=== PATIENT | male | born 1995 | race Caucasian/White ===

== ENCOUNTER → 2016-10-26 | Outpatient (CLI) | payer OTHER ==
[~2016-10-26] MED LIST: CNC/54 PO
--- NOTE | 2016-10-26 14:27 | DIAGNOSTIC IMAGING REPORT ---
CHEST 2 VIEWS ROUTINE CLINICAL HISTORY: R05 [id number] [id number] Fatigueh/o EIA, now with cough, wz COMPARISON STUDY: 05/06/2016 FINDINGS: The cardiac and mediastinal contours are normal. There is no evidence of focal pulmonary consolidation. There is no evidence of failure. No pleural effusions are visualized.[ IMPRESSION: No active disease in the chest. Electronically signed by: Javier Cohen M.D. 10/26/2016 2:26 PM Dictated Date/Time: 10/26/2016 2:26 PM
[2016-10-26 14:55] LABS: BASO % 0.1 %; BASO ABS # 0.01 K/uL (0-0.2); COMPLETE YES; EOS % 7.7 %; HEMATOCRIT 45.4 % (42-52); IG% 0.1 %; LYMPH ABS # 2.06 K/uL (1.2-3.4); MEAN CELL VOLUME 86.3 fL (80-100); MEAN CORPUSCULAR HEMOGLOBIN 29.1 pg (25-34); MEAN CORPUSCULAR HGB CONC 33.7 g/dl (32-36); MEAN PLATELET VOLUME 11.4 fL (7.4-10.4); MONO % 6.3 %; NEUT % 59.8 %; PLATELET COUNT 254 K/uL (130-400); RED BLOOD COUNT 5.26 M/uL (4.7-6.1); WHITE BLOOD COUNT 7.91 K/uL (4.8-10.8)
[2016-10-26 15:13] LABS: ALT/SGPT 22 U/L (12-78); BLOOD UREA NITROGEN 17 mg/dl (7-18); BUN/CREATININE RATIO 13.4 (10-20); CALCIUM 9.7 mg/dl (8.5-10.1); CARBON DIOXIDE 28 mmol/L (21-32); CHLORIDE 103 mmol/L (98-107); GLUCOSE 100 mg/dl (70-99); GLUCOSE,FASTING 100 mg/dl (70-99); POTASSIUM 4.3 mmol/L (3.5-5.1); SODIUM 140 mmol/L (136-145)
[2016-10-26 15:24] LABS: ALB/GLOB RATIO 1.2 (0.9-2); ALKALINE PHOSPHATASE 68 U/L (45-117); AST/SGOT 19 U/L (15-37); FERRITIN 46.8 ng/ml (8.0-388.0); THYROID STIMULATING HORMONE 0.637 uIu/ml (0.300-4.500)
[2016-10-26 15:35] LABS: CALCULATED INSULIN SENSITIVITY 0.312; INSULIN FASTING 15.9 mU/L (3-25)
[2016-10-26 16:37] LABS: LYME DISEASE AB IGG NEG (NEG); LYME DISEASE AB IGM NEG (NEG)
[2016-10-27 06:10] LABS: ESTIMATED AVERAGE GLUCOSE 100 mg/dl; HA1C FLAG Normal (Normal)
[2016-11-03 21:53] LABS: EBV EARLY ANTIGEN AB <9.00 U/ML
== END ==
LOC: C.RAD 13:38
PROVIDERS: ATTEND Lactation Consultant, Non-RN
DX: J45.909 Unspecified asthma, uncomplicated (principal); R53.83 Other fatigue

== ENCOUNTER 2016-12-29 07:57 | Observation (INO) | payer OTHER ==
[~2016-12-29] VITALS: Ht 175.3 cm; Wt 91.2 kg
[2016-12-29] MEDS ORDERED: SODIUM CHLORIDE 0.9% 1000ML 1,000 ML IV STA (08:18)
--- NOTE | 2016-12-29 08:52 | DIAGNOSTIC IMAGING REPORT ---
HEAD CT NONCONTRAST CT DOSE: 638.56 mGycm HISTORY: OVERDOSE TECHNIQUE: Multiaxial CT images of the head were performed without the use of intravenous contrast. Automated exposure control was utilized for this study. A dose lowering technique was utilized adhering to the principles of ALARA. Comparison: Head CT 06/13/2011. Findings: The paranasal sinuses and mastoid air cells are clear. The calvarium and skull base are intact. The ventricles and sulci are within normal limits. There is no mass, hematoma, midline shift, or acute infarct. Old nasal bone fractures. Impression: No acute intracranial abnormality. Electronically signed by: Jad Garza M.D. 12/29/2016 8:51 AM Dictated Date/Time: 12/29/2016 8:47 AM
[2016-12-29 08:55] LABS: COMPLETE YES; EOS % 0.8 %; HEMATOCRIT 42.5 % (42-52); IG% 0.3 %; LYMPH % 10.6 %; LYMPH ABS # 1.15 K/uL (1.2-3.4); MEAN CELL VOLUME 85.9 fL (80-100); MEAN CORPUSCULAR HEMOGLOBIN 29.5 pg (25-34); MEAN CORPUSCULAR HGB CONC 34.4 g/dl (32-36); MEAN PLATELET VOLUME 11.1 fL (7.4-10.4); MONO % 6.8 %; NEUT % 81.5 %; PLATELET COUNT 256 K/uL (130-400); RED BLOOD COUNT 4.95 M/uL (4.7-6.1)
--- NOTE | 2016-12-29 08:57 | DIAGNOSTIC IMAGING REPORT ---
CHEST ONE VIEW PORTABLE CLINICAL HISTORY: Overdose COMPARISON STUDY: 10/26/2016 FINDINGS: The heart is borderline enlarged. There is a minimal right apical airspace opacity versus summation with the right first rib. The lungs are otherwise clear. There are no pleural effusions.[ IMPRESSION: Minimal right apical airspace opacity versus right first rib summation. The lungs are otherwise clear. Electronically signed by: Javier Cohen M.D. 12/29/2016 8:55 AM Dictated Date/Time: 12/29/2016 8:54 AM
[2016-12-29 09:13] LABS: URINE APPEARANCE CLEAR (CLEAR); URINE BILIRUBIN NEG (NEG); URINE COLOR YELLOW; URINE NITRITE NEG (NEG); URINE PH 5.5 (4.5-7.5); URINE SPECIFIC GRAVITY 1.031 (1.000-1.030); UROBILINOGEN NEG (NEG)
[2016-12-29 09:16] LABS: MANUAL MICROSCOPIC REQUIRED? NO; REVIEW REQ? NO
[2016-12-29 09:22] LABS: CREATININE 1.5 mg/dl (0.60-1.40)
[2016-12-29 09:23] LABS: BUN/CREATININE RATIO 15.3 (10-20); CALCIUM 9.4 mg/dl (8.5-10.1)
[2016-12-29 09:24] LABS: ACETAMINOPHEN < 2 ug/ml (10-30)
[2016-12-29] MEDS ORDERED: CNC/54 PO (09:27)
[2016-12-29 11:22] LABS: BENZODIAZEPINE, URINE NEG (NEG); COCAINE,URINE NEG (NEG); PHENCYCLIDINE, URINE NEG (NEG)
--- NOTE | 2016-12-29 11:29 | Medical Student: [facility] ---
Med Student History & Physical Date & Time of Service: Dec 29, 2016 at 11:26 Chief Complaint: Overdose Primary Care Physician: No Doctor, Assigned History of Present Illness Source: patient, family (father at bedside) Jake Mansfield is a 21 yo male, with prior Percocet/alcohol overdose in September 2015 , presented via EMS to the ED complaining of accidental Percocet overdose this morning. Patient's father states he found Jake in his room, purple, and unresponsive; father then called EMS, who gave Narcan in field. Patient responded to Narcan and was transported to the ED. Patient states he thinks he took 100mg of Percocet by nose "accidentally" this morning, noting occasionally taking 50-100mg of Percocet recreationally, with most recent ingestion 1.5- 2monhs prior. Jake states history of similar situation in September 2015, after receiving Percocet for a nose surgery. He notes his mother was in charge of his medication regime, but by the end of his treatment, he took the rest of the pills with alcohol, leading to an overdose. Patient reports taking Concerta 54 for ADHD (diagnosed at 10 yo), but usually does not take it during the summer; patient denies taking Concerta for last 2 weeks. Patient notes he takes ibuprofen for pain as needed about 3x a week, reporting possibly taking "4 tablets" of unknown concentration earlier last evening. Patient reports about 1.5 months ago, he was prescribed vitamin D for decreased energy level, with significant improvement in energy. Patient denies taking any other prescribed, OTC, or otherwise medications including other recreational drugs, Tylenol, or aspirin. Patient denies feeling down or depressed, suicidal or homicidal ideation, feelings of guilt, racing thoughts, feeling anxious, changes in appetite, or concentration changes. Patient notes a dry cough on ROS for the last couple of days, but does not seem bothered by it. Patient reports fatigue but denies any other associated symptoms. 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), student Allergies Coded Allergies: No Known Allergies (Unverified , 05/05/16) Medications Methylphenidate Hcl (Concerta), 54 MG PO DAILY Review of Systems Constitutional: + fatigue, No fever, No chills, No sweats, No weight loss, No weakness Eyes: No worsening of vision, No eye pain, No redness, No diplopia ENT: No hearing loss, No nasal symptoms, No sore throat, No trouble swallowing Respiratory: + cough (for 3 days), No sputum, No shortness of breath Cardiovascular: No chest pain, No orthopnea, No edema, No palpitations Abdomen: No pain, No nausea, No vomiting, No diarrhea, No constipation Musculoskeletal: No joint pain, No muscle pain, No calf pain Genitourinary - Male: No hematuria, No dysuria, No urinary frequency Neurologic: No weakness, No numbness/tingling Psychiatric: + substance abuse, No depression symptoms, No anxiety Endocrine: + fatigue Hematologic / Lymphatic: No abnormal bleeding/bruising, No swollen lymph nodes , No night sweats Integumentary: No rash, No itch Physical Exam Vital Signs (24 Hours) Date Time Temp Pulse Resp B/P (MAP) Pulse Ox O2 Delivery O2 Flow Rate FiO2 12/29/16 10:07 79 13 138/71 95 12/29/16 10:02 77 13 94 12/29/16 09:57 78 10 95 12/29/16 09:52 86 7 93 12/29/16 09:47 90 10 94 12/29/16 09:42 93 14 95 12/29/16 09:37 93 6 94 12/29/16 09:32 98 17 94 12/29/16 09:27 92 9 94 12/29/16 09:22 91 19 96 12/29/16 09:17 90 15 96 12/29/16 09:12 98 11 96 12/29/16 09:07 92 18 97 12/29/16 09:02 96 13 96 12/29/16 08:57 87 3 96 12/29/16 08:52 95 15 97 12/29/16 08:51 148/94 12/29/16 08:37 101 15 97 12/29/16 08:32 95 13 97 12/29/16 08:29 98 Room Air 12/29/16 08:27 103 14 98 12/29/16 08:22 101 24 97 12/29/16 08:17 105 16 132/89 97 12/29/16 08:12 98 21 96 12/29/16 08:07 101 9 97 12/29/16 08:05 96 12/29/16 08:00 37.3 99 20 135/93 97 Room Air 12/29/16 08:00 135/93 General Appearance: WD/WN, no apparent distress, + pertinent finding (fatigue, eyes closed during most of interview/exam) Head: normocephalic, atraumatic Eyes: normal inspection, PERRL, EOMI, sclerae normal ENT: normal ENT inspection, hearing grossly normal, pharynx normal Neck: supple, no adenopathy Respiratory/Chest: chest non-tender, lungs clear, normal breath sounds, no respiratory distress, no accessory muscle use Cardiovascular: regular rate, rhythm, no edema, no murmur, normal peripheral pulses Abdomen/GI: normal bowel sounds, non tender, soft, no organomegaly Back: normal inspection, normal range of motion Extremities/Musculoskelatal: normal inspection, no calf tenderness, no pedal edema, normal range of motion, non-tender Neurologic/Psych: lot attendant II-XII nml as tested, no motor/sensory deficits, alert, normal mood/affect, oriented x 3 Skin: normal color, warm/dry, + rash (dermititis rash on left loja) Lymphatic: no adenopathy Diagnostics Laboratory Results Results Past 24 Hours Test 12/29/16 08:26 12/29/16 08:28 12/29/16 08:55 Range/Units Bedside Glucose 159 70-99 mg/dl White Blood Count 10.80 4.8-10.8 K/uL Red Blood Count 4.95 4.7-6.1 M/uL Hemoglobin 14.6 14.0-18.0 g/dL Hematocrit 42.5 42-52 % Mean Corpuscular Volume 85.9 80-100 fL Mean Corpuscular Hemoglobin 29.5 25-34 pg Mean Corpuscular Hemoglobin Concent 34.4 32-36 g/dl Platelet Count 256 130-400 K/uL Mean Platelet Volume 11.1 7.4-10.4 fL Neutrophils (%) (Auto) 81.5 % Lymphocytes (%) (Auto) 10.6 % Monocytes (%) (Auto) 6.8 % Eosinophils (%) (Auto) 0.8 % Basophils (%) (Auto) 0.0 % Neutrophils # (Auto) 8.80 1.4-6.5 K/uL Lymphocytes # (Auto) 1.15 1.2-3.4 K/uL Monocytes # (Auto) 0.73 0.11-0.59 K/uL Eosinophils # (Auto) 0.09 0-0.5 K/uL Basophils # (Auto) 0.00 0-0.2 K/uL RDW Standard Deviation 40.3 36.4-46.3 fL RDW Coefficient of Variation 12.9 11.5-14.5 % Immature Granulocyte % (Auto) 0.3 % Immature Granulocyte # (Auto) 0.03 0.00-0.02 K/uL Prothrombin Time 11.0 9.0-12.0 SECONDS Prothromb Time International Ratio 1.0 0.9-1.1 Activated Partial Thromboplast Time 24.9 21.0-31.0 SECONDS Partial Thromboplastin Ratio 1.0 Sodium Level 141 136-145 mmol/L Potassium Level 4.0 3.5-5.1 mmol/L Chloride Level 105 98-107 mmol/L Carbon Dioxide Level 30 21-32 mmol/L Anion Gap 6.0 3-11 mmol/L Blood Urea Nitrogen 23 7-18 mg/dl Creatinine 1.50 0.60-1.40 mg/dl Est Creatinine Clear Calc Drug Dose 86.4 ml/min Estimated GFR () 76.6 Estimated GFR (Non- 66.1 BUN/Creatinine Ratio 15.3 10-20 Random Glucose 149 70-99 mg/dl Calcium Level 9.4 8.5-10.1 mg/dl Total Bilirubin 0.5 0.2-1 mg/dl Direct Bilirubin 0.1 0-0.2 mg/dl Aspartate Amino Transf (AST/SGOT) 11 15-37 U/L Alanine Aminotransferase (ALT/SGPT) 23 12-78 U/L Alkaline Phosphatase 79 45-117 U/L Total Creatine Kinase 159 39-308 U/L Troponin I 0.051 0-0.045 ng/ml Total Protein 7.4 6.4-8.2 gm/dl Albumin 4.0 3.4-5.0 gm/dl Lipase 166 73-393 U/L Salicylates Level < 1.7 2.8-20 mg/dl Acetaminophen Level < 2 10-30 ug/ml Ethyl Alcohol mg/dL < 3.0 0-3 mg/dl Urine Color YELLOW Urine Appearance CLEAR CLEAR Urine pH 5.5 4.5-7.5 Urine Specific [place] 1.031 1.000-1.030 Urine Protein 1+ NEG Urine Glucose (UA) 3+ NEG Urine Ketones NEG NEG Urine Occult Blood NEG NEG Urine Nitrite NEG NEG Urine Bilirubin NEG NEG Urine Urobilinogen NEG NEG Urine Leukocyte Esterase NEG NEG Urine WBC (Auto) 1-5 0-5 /hpf Urine RBC (Auto) 0-4 0-4 /hpf Urine Hyaline Casts (Auto) 5-10 0-5 /lpf Urine Epithelial Cells (Auto) 10-20 0-5 /lpf Urine Bacteria (Auto) NEG NEG Urine Opiates Screen POS NEG Urine Methadone, Qualitative NEG NEG Urine Barbiturates NEG NEG Urine Phencyclidine (PCP) Level NEG NEG Ur Amphetamine/Methamphetamine NEG NEG MDMA (Ecstasy) Screen NEG NEG Urine Benzodiazepines Screen NEG NEG Urine Cocaine Metabolite NEG NEG Urine Marijuana (THC) NEG NEG Diagnostic Radiology HEAD CT NONCONTRAST CT DOSE: 638.56 mGycm HISTORY: OVERDOSE TECHNIQUE: Multiaxial CT images of the head were performed without the use of intravenous contrast. Automated exposure control was utilized for this study. A dose lowering technique was utilized adhering to the principles of ALARA. Comparison: Head CT 06/13/2011. Findings: The paranasal sinuses and mastoid air cells are clear. The calvarium and skull base are intact. The ventricles and sulci are within normal limits. There is no mass, hematoma, midline shift, or acute infarct. Old nasal bone fractures. Impression: No acute intracranial abnormality. CHEST ONE VIEW PORTABLE CLINICAL HISTORY: Overdose COMPARISON STUDY: 10/26/2016 FINDINGS: The heart is borderline enlarged. There is a minimal right apical airspace opacity versus summation with the right first rib. The lungs are otherwise clear. There are no pleural effusions.[ IMPRESSION: Minimal right apical airspace opacity versus right first rib summation. The lungs are otherwise clear. Normal EKG Impression Assessment and Plan Jake Mansfield is a 21 yo male, with known PMHx of Percocet/alcohol induced overdose September 2015, presented via EMS status post Narcan in field, after found unresponsive at home. Patient will be monitored in ED for at least 3 hours post Narcan administration to adequately monitor patient's respiratory rate ( half life of Narcan ~1.5hrs). Patient's labs will be monitored for hypoxic damage, paying attention to end organ damage and possible rhabdomyolysis. Overdose, Percocet, Acute - Monitor patient's respiratory rate - Give 2L of IV NS fluids over 3 hours - Trend labs: troponin, BUN, Cr, CK, - Consult psychiatry - Head non-contrast CT: showed no acute intracranial abnormalities - EKG: NSR, no electrical abnormalities noted - CXR: "Minimal right apical airspace opacity versus right first rib summation. The lungs are otherwise clear." No current clinical findings (denies shortness of breath, normal breath sounds) ADHD - Hold Concerta 54 (home medication) Dermatitis rash on left loja - Monitor while in ED. If becomes worse, apply topical steroids This is an outpatient consult. Patient not anticipated to be admitted to [facility] at this time. Level of Care d/c from ED home Resuscitation Status FULL RESUSCITATION
--- NOTE | 2016-12-29 12:16 | Medical Consult ---
Consultation Date of Consultation: Dec 29, 2016. Attending Physician: History of Present Illness 21 y/o M Hx ADHD, recreational opiate use. Pt crushed up opiates this AM - approximately 100mg - and proceeded to snort the whole amount. He was discovered at home by his father who reported that the pt was barely breathing and appeared cyanotic in color. EMS was summoned and he received one dose of Narcan. He also reports that he hit the back of his hid in the tub earlier in the day but does not report associated LOC. He denies that he was intent to harm himself, however, this is the second time he has overdosed requiring medical attention in the past few months. He was somnolent on arrival to the ER although he is awake and alert at the time of evaluation. He denies CP, SOB, N/ V and states that he feels well presently. Initial labs show a borderline troponin and a mild creatinine elevation. 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 Smoking Status: Current Some Day Smoker (1 pack per week for ~2 months, uses vap few times a week) Marital Status: single Housing Status: lives with family Occupation Status: student Allergies Coded Allergies: No Known Allergies (Unverified , 05/05/16) Review of Systems Constitutional: No fever, No chills, No sweats Eyes: No worsening of vision ENT: No hearing loss, No unusual epistaxis, No nasal symptoms Respiratory: No cough, No sputum, No wheezing Cardiovascular: No chest pain, No orthopnea, No PND Abdomen: No pain, No nausea, No vomiting Musculoskeletal: No joint pain Genitourinary - Male: No hematuria, No dysuria Neurologic: + problem reported (LOC due to opiate use - mild BAE), No memory loss, No paralysis, No weakness Psychiatric: + substance abuse Endocrine: No fatigue, No excessive thirst Hematologic / Lymphatic: No abnormal bleeding/bruising Integumentary: + rash (small petechial mindi on inner aspect of distal LLE) Allergic / Immunologic: No environmental allergies Physical Exam Date Time Temp Pulse Resp B/P (MAP) Pulse Ox O2 Delivery O2 Flow Rate FiO2 12/29/16 10:07 79 13 138/71 95 12/29/16 10:02 77 13 94 12/29/16 09:57 78 10 95 12/29/16 09:52 86 7 93 12/29/16 09:47 90 10 94 12/29/16 09:42 93 14 95 12/29/16 09:37 93 6 94 12/29/16 09:32 98 17 94 12/29/16 09:27 92 9 94 12/29/16 09:22 91 19 96 12/29/16 09:17 90 15 96 12/29/16 09:12 98 11 96 12/29/16 09:07 92 18 97 12/29/16 09:02 96 13 96 12/29/16 08:57 87 3 96 12/29/16 08:52 95 15 97 12/29/16 08:51 148/94 12/29/16 08:37 101 15 97 12/29/16 08:32 95 13 97 12/29/16 08:29 98 Room Air 12/29/16 08:27 103 14 98 12/29/16 08:22 101 24 97 12/29/16 08:17 105 16 132/89 97 12/29/16 08:12 98 21 96 12/29/16 08:07 101 9 97 12/29/16 08:05 96 12/29/16 08:00 37.3 99 20 135/93 97 Room Air 12/29/16 08:00 135/93 General Appearance: WD/WN, no apparent distress Head: normocephalic Eyes: normal inspection, EOMI ENT: normal ENT inspection, pharynx normal Neck: supple, no JVD Respiratory/Chest: chest non-tender, lungs clear, normal breath sounds Cardiovascular: regular rate, rhythm, no edema, no gallop Abdomen/GI: normal bowel sounds, non tender, soft Back: normal inspection, no CVA tenderness, no muscle spasm Extremities/Musculoskelatal: normal inspection, no calf tenderness, normal capillary refill Neurologic/Psych: oven roaster II-XII nml as tested, no motor/sensory deficits, alert Skin: + pertinent finding (Rash - petechial - limited area of L calf) Laboratory Results Last 24 Hours Test 12/29/16 08:26 12/29/16 08:28 12/29/16 08:55 Bedside Glucose 159 mg/dl White Blood Count 10.80 K/uL Red Blood Count 4.95 M/uL Hemoglobin 14.6 g/dL Hematocrit 42.5 % Mean Corpuscular Volume 85.9 fL Mean Corpuscular Hemoglobin 29.5 pg Mean Corpuscular Hemoglobin Concent 34.4 g/dl Platelet Count 256 K/uL Mean Platelet Volume 11.1 fL Neutrophils (%) (Auto) 81.5 % Lymphocytes (%) (Auto) 10.6 % Monocytes (%) (Auto) 6.8 % Eosinophils (%) (Auto) 0.8 % Basophils (%) (Auto) 0.0 % Neutrophils # (Auto) 8.80 K/uL Lymphocytes # (Auto) 1.15 K/uL Monocytes # (Auto) 0.73 K/uL Eosinophils # (Auto) 0.09 K/uL Basophils # (Auto) 0.00 K/uL RDW Standard Deviation 40.3 fL RDW Coefficient of Variation 12.9 % Immature Granulocyte % (Auto) 0.3 % Immature Granulocyte # (Auto) 0.03 K/uL Prothrombin Time 11.0 SECONDS Prothromb Time International Ratio 1.0 Activated Partial Thromboplast Time 24.9 SECONDS Partial Thromboplastin Ratio 1.0 Sodium Level 141 mmol/L Potassium Level 4.0 mmol/L Chloride Level 105 mmol/L Carbon Dioxide Level 30 mmol/L Anion Gap 6.0 mmol/L Blood Urea Nitrogen 23 mg/dl Creatinine 1.50 mg/dl Est Creatinine Clear Calc Drug Dose 86.4 ml/min Estimated GFR () 76.6 Estimated GFR (Non- 66.1 BUN/Creatinine Ratio 15.3 Random Glucose 149 mg/dl Calcium Level 9.4 mg/dl Total Bilirubin 0.5 mg/dl Direct Bilirubin 0.1 mg/dl Aspartate Amino Transf (AST/SGOT) 11 U/L Alanine Aminotransferase (ALT/SGPT) 23 U/L Alkaline Phosphatase 79 U/L Total Creatine Kinase 159 U/L Troponin I 0.051 ng/ml Total Protein 7.4 gm/dl Albumin 4.0 gm/dl Lipase 166 U/L Salicylates Level < 1.7 mg/dl Acetaminophen Level < 2 ug/ml Ethyl Alcohol mg/dL < 3.0 mg/dl Urine Color YELLOW Urine Appearance CLEAR Urine pH 5.5 Urine Specific [place] 1.031 Urine Protein 1+ Urine Glucose (UA) 3+ Urine Ketones NEG Urine Occult Blood NEG Urine Nitrite NEG Urine Bilirubin NEG Urine Urobilinogen NEG Urine Leukocyte Esterase NEG Urine WBC (Auto) 1-5 /hpf Urine RBC (Auto) 0-4 /hpf Urine Hyaline Casts (Auto) 5-10 /lpf Urine Epithelial Cells (Auto) 10-20 /lpf Urine Bacteria (Auto) NEG Urine Opiates Screen POS Urine Methadone, Qualitative NEG Urine Barbiturates NEG Urine Phencyclidine (PCP) Level NEG Ur Amphetamine/Methamphetamine NEG MDMA (Ecstasy) Screen NEG Urine Benzodiazepines Screen NEG Urine Cocaine Metabolite NEG Urine Marijuana (THC) NEG Assessment & Plan 21 y/o M Hx ADHD, recreational opiate use. Pt crushed up opiates this AM - approximately 100mg - and proceeded to snort the whole amount. He was discovered at home by his father who reported that the pt was barely breathing and appeared cyanotic in color. EMS was summoned and he received one dose of Narcan. He also reports that he hit the back of his hid in the tub earlier in the day but does not report associated LOC. He denies that he was intent to harm himself, however, this is the second time he has overdosed requiring medical attention in the past few months. He was somnolent on arrival to the ER although he is awake and alert at the time of evaluation. He denies CP, SOB, N/ V and states that he feels well presently. Initial labs show a borderline troponin and a mild creatinine elevation. 1) Opiate OD - from a medical standpoint, the Narcan dose has worn off, he is not exhibiting toxicity and therefore any respiratory depression is unlikely to recur. As this is his second OD, he will be evaluated by mental health prior to consideration for DC and should be referred for outpt counseling. The pt may be DCd if mental health does not see cause for admission. 2) Elevation in creatinine and borderline trop may represent mild hypoxic injury. He is receiving aggressive IVF and labs will be rechecked. EKG shows no abnormalities. 3) ADHD - I would not advise on stimulant use for this pt and have mentioned this to him - he does not apparently use his Concerta regularly - should discuss with mental health or his prescribing PCP. Above reviewed with ER attending, pt and family - total time for this consult including review of labs, records, EKG, CT - discussion with pt, family (at pt' s request), ER attending, mental health service - 38 min
[2016-12-29 12:18] LABS: CREATININE 1.2 mg/dl (0.60-1.40)
--- NOTE | 2016-12-29 13:36 | Psych Management Progress Note ---
Psychiatry Miscellaneous Date of Service: Dec 29, 2016. Reviewed case with Cheryl Sandra psych nurse liaison, and reviewed recommendations that patient be treated medically for OD, and then recommend inpatient rehab as he overdosed in an attempt to get high. No history of depression, mental health treatment or hospitalization, and denying depressive symptoms. Does not meet criteria for inpatient psychiatric admission. Also recommend coordination of care with PCP who is prescribing him controlled substances, as these are contraindicated given substance abuse. Was informed by liaison nurse that patient would be admitted medically to Dr. Gordon's service. Then received a call from Dr. Gordon, stating he was not going to admit the patient. Reviewed these same recommendations with him, including importance of coordinating care with the physician who is prescribing stimulants. Again reviewed case with Cheryl Sandra, psych liaison nurse, regarding need to involve family for safety planning if patient is being discharged from the ER, and the recommendations for substance abuse treatment.
[2016-12-29] MEDS ORDERED: NURSING VERBAL MED ORDER ONE ×2 (13:45→21:00)
[2016-12-29] MEDS ORDERED: ALUMINUM/MAGNESIUM SUSP 30 ML UDC ONE (13:58)
[2016-12-29] MEDS ORDERED: ONDANSETRON INJ 2 MG/ML 2 ML VIAL ONE (14:15)
[2016-12-29] MEDS ORDERED: ACETAMINOPHEN 325 MG TAB PO PRN (14:15)
[2016-12-29] MEDS ORDERED: MAGNESIUM HYDROXIDE SUSP 30 ML UDC PO PRN (14:15)
[2016-12-29] MEDS ORDERED: ALUMINUM/MAGNESIUM/SIMETH (MAALOX MAX) 30 ML UDC PO PRN (14:15)
[2016-12-29] MEDS ORDERED: ONDANSETRON INJ 2 MG/ML 2 ML VIAL IV PRN (14:15)
[2016-12-29] MEDS ORDERED: POLYETHYLENE (MIRALAX) 17 GM PACK PO PRN (14:15)
[2016-12-29] MEDS ORDERED: ZOLPIDEM TARTRATE 5 MG TAB PO PRN (14:15)
--- NOTE | 2016-12-29 14:30 | EMERGENCY ROOM VISIT NOTE ---
History Report prepared by Kourtney: Georgette Villalobos Under the Supervision of: Dr. Gibran Doan D.O. First contact with patient: 08:00 Chief Complaint: OVERDOSE (INTENTIONAL) Stated Complaint: OVERDOSE History of Present Illness The patient is a 21 year old male who presents to the Emergency Room with complaints of intentional overdose prior to arrival. The patient reports that he snorted about ten 5 mg Percocet and then took more approximately 2 hours ago. He denies taking any Tylenol or Aspirin with the Percocet. He denies doing any IV drugs. Per his mother, the patient has been taking Percocet off and on for 3 years. His father states that he found the patient and that the patient was purple and was having trouble breathing. The patient reports that he also on Concerta. Per his mother, in the past the patient has drank alcohol with pain medication from nose surgery. Pt denies headache, fevers, nausea, vomiting , diarrhea, pain with urination, and melena. He denies taking any other medications. Source of History: patient, parent (mother and father ) Onset: prior to arrival Position: other (global) Quality: other (overdose) Associated Symptoms: No fevers, No headache, No diarrhea Note: other symptom: trouble breathing Review of Systems See HPI for pertinent positives & negatives. A total of 10 systems reviewed and were otherwise negative. Past Medical & Surgical Medical Problems: (1) Alcohol intoxication (2) Cough (3) Cough (4) Cough (5) Neck strain (6) No Known Active Medical Problems (7) Opiate abuse, episodic (8) Opioid overdose (9) Pulmonary nodule (10) Shortness of breath Family History Cancer Diabetes mellitus Hypertension Kidney disease Kidney stones Social History Smoking Status: Current Some Day Smoker Alcohol Use: occasionally Marital Status: single Housing Status: lives with family Occupation Status: student Current/Historical Medications Scheduled Methylphenidate Hcl (Concerta), 54 MG PO DAILY Allergies Coded Allergies: No Known Allergies (Unverified , 05/05/16) Physical Exam Vital Signs Date Time Temp Pulse Resp B/P (MAP) Pulse Ox O2 Delivery O2 Flow Rate FiO2 12/29/16 14:19 78 16 120/69 93 Room Air 12/29/16 14:00 108 15 149/100 100 Room Air 12/29/16 10:07 79 13 138/71 95 12/29/16 10:02 77 13 94 8/8/17 09:57 78 10 95 12/29/16 09:52 86 7 93 12/29/16 09:47 90 10 94 12/29/16 09:42 93 14 95 12/29/16 09:37 93 6 94 12/29/16 09:32 98 17 94 12/29/16 09:27 92 9 94 12/29/16 09:22 91 19 96 12/29/16 09:17 90 15 96 12/29/16 09:12 98 11 96 12/29/16 09:07 92 18 97 12/29/16 09:02 96 13 96 12/29/16 08:57 87 3 96 12/29/16 08:52 95 15 97 12/29/16 08:51 148/94 12/29/16 08:37 101 15 97 12/29/16 08:32 95 13 97 12/29/16 08:29 98 Room Air 12/29/16 08:27 103 14 98 12/29/16 08:22 101 24 97 12/29/16 08:17 105 16 132/89 97 12/29/16 08:12 98 21 96 12/29/16 08:07 101 9 97 12/29/16 08:05 96 12/29/16 08:00 37.3 99 20 135/93 97 Room Air 12/29/16 08:00 135/93 Physical Exam GENERAL: Sitting up in bed, disheveled, slightly confused EYE EXAM: normal conjunctiva, PERRL and EOM's intact OROPHARYNX: no exudate, no erythema, lips, buccal mucosa, and tongue normal and mucous membranes are moist NECK: supple, no nuchal rigidity, no adenopathy, non-tender LUNGS: Clear to auscultation. Normal chest wall mechanics HEART: no murmurs, S1 normal and S2 normal ABDOMEN: abdomen soft, non-tender, normo-active bowel sounds, no masses, no rebound or guarding. BACK: Back is symmetrical on inspection and there is no deformity, no midline tenderness, no CVA tenderness. SKIN: no rashes and no bruising UPPER EXTREMITIES: upper extremities are grossly normal. LOWER EXTREMITIES: No pitting edema. NEURO EXAM: Awake, alert, and oriented x3. Falls asleep quickly and intermittently. cranial nerves II-XII intact, normal speech, no weakness of arms, no weakness of legs. No drift. Finger to nose intact. Gross sensation intact. Medical Decision & Procedures ER Provider Diagnostic Interpretation: CT scan: Radiology provided the following report CT: HEAD CT NONCONTRAST CT DOSE: 638.56 mGycm HISTORY: OVERDOSE TECHNIQUE: Multiaxial CT images of the head were performed without the use of intravenous contrast. Automated exposure control was utilized for this study. A dose lowering technique was utilized adhering to the principles of ALARA. Comparison: Head CT 06/13/2011. Findings: The paranasal sinuses and mastoid air cells are clear. The calvarium and skull base are intact. The ventricles and sulci are within normal limits. There is no mass, hematoma, midline shift, or acute infarct. Old nasal bone fractures. Impression: No acute intracranial abnormality. Electronically signed by: Jad Garza M.D. 12/29/2016 8:51 AM Dictated Date/Time: 12/29/2016 8:47 AM XRAY: A 1 view study was reviewed, no fracture was seen. CHEST ONE VIEW PORTABLE CLINICAL HISTORY: Overdose COMPARISON STUDY: 10/26/2016 FINDINGS: The heart is borderline enlarged. There is a minimal right apical airspace opacity versus summation with the right first rib. The lungs are otherwise clear. There are no pleural effusions.[ IMPRESSION: Minimal right apical airspace opacity versus right first rib summation. The lungs are otherwise clear. Electronically signed by: Javier Cohen M.D. 12/29/2016 8:55 AM Dictated Date/Time: 12/29/2016 8:54 AM Laboratory Results 12/29/16 08:28 Red Blood Count 4.95, Mean Corpuscular Volume 85.9, Mean Corpuscular Hemoglobin 29.5, Mean Corpuscular Hemoglobin Concent 34.4, Mean Platelet Volume 11.1, Neutrophils (%) (Auto) 81.5, Lymphocytes (%) (Auto) 10.6, Monocytes (%) (Auto) 6.8, Eosinophils (%) (Auto) 0.8, Basophils (%) (Auto) 0.0, Neutrophils # (Auto) 8.80, Lymphocytes # (Auto) 1.15, Monocytes # (Auto) 0.73, Eosinophils # (Auto) 0.09, Basophils # (Auto) 0.00 12/29/16 11:39 Test 12/29/16 08:26 12/29/16 08:28 12/29/16 08:55 12/29/16 11:39 Bedside Glucose 159 mg/dl (70-99) White Blood Count 10.80 K/uL (4.8-10.8) Red Blood Count 4.95 M/uL (4.7-6.1) Hemoglobin 14.6 g/dL (14.0-18.0) Hematocrit 42.5 % (42-52) Mean Corpuscular Volume 85.9 fL (80-100) Mean Corpuscular Hemoglobin 29.5 pg (25-34) Mean Corpuscular Hemoglobin Concent 34.4 g/dl (32-36) Platelet Count 256 K/uL (130-400) Mean Platelet Volume 11.1 fL (7.4-10.4) Neutrophils (%) (Auto) 81.5 % Lymphocytes (%) (Auto) 10.6 % Monocytes (%) (Auto) 6.8 % Eosinophils (%) (Auto) 0.8 % Basophils (%) (Auto) 0.0 % Neutrophils # (Auto) 8.80 K/uL (1.4-6.5) Lymphocytes # (Auto) 1.15 K/uL (1.2-3.4) Monocytes # (Auto) 0.73 K/uL (0.11-0.59) Eosinophils # (Auto) 0.09 K/uL (0-0.5) Basophils # (Auto) 0.00 K/uL (0-0.2) RDW Standard Deviation 40.3 fL (36.4-46.3) RDW Coefficient of Variation 12.9 % (11.5-14.5) Immature Granulocyte % (Auto) 0.3 % Immature Granulocyte # (Auto) 0.03 K/uL (0.00-0.02) Prothrombin Time 11.0 SECONDS (9.0-12.0) Prothromb Time International Ratio 1.0 (0.9-1.1) Activated Partial Thromboplast Time 24.9 SECONDS (21.0-31.0) Partial Thromboplastin Ratio 1.0 Total Bilirubin 0.5 mg/dl (0.2-1) Direct Bilirubin 0.1 mg/dl (0-0.2) Aspartate Amino Transf (AST/SGOT) 11 U/L (15-37) Alanine Aminotransferase (ALT/SGPT) 23 U/L (12-78) Alkaline Phosphatase 79 U/L (45-117) Total Protein 7.4 gm/dl (6.4-8.2) Albumin 4.0 gm/dl (3.4-5.0) Lipase 166 U/L (73-393) Salicylates Level < 1.7 mg/dl (2.8-20) Acetaminophen Level < 2 ug/ml (10-30) Ethyl Alcohol mg/dL < 3.0 mg/dl (0-3) Urine Color YELLOW Urine Appearance CLEAR (CLEAR) Urine pH 5.5 (4.5-7.5) Urine Specific [place] 1.031 (1.000-1.030) Urine Protein 1+ (NEG) Urine Glucose (UA) 3+ (NEG) Urine Ketones NEG (NEG) Urine Occult Blood NEG (NEG) Urine Nitrite NEG (NEG) Urine Bilirubin NEG (NEG) Urine Urobilinogen NEG (NEG) Urine Leukocyte Esterase NEG (NEG) Urine WBC (Auto) 1-5 /hpf (0-5) Urine RBC (Auto) 0-4 /hpf (0-4) Urine Hyaline Casts (Auto) 5-10 /lpf (0-5) Urine Epithelial Cells (Auto) 10-20 /lpf (0-5) Urine Bacteria (Auto) NEG (NEG) Urine Opiates Screen POS (NEG) Urine Methadone, Qualitative NEG (NEG) Urine Barbiturates NEG (NEG) Urine Phencyclidine (PCP) Level NEG (NEG) Ur Amphetamine/Methamphetamine NEG (NEG) MDMA (Ecstasy) Screen NEG (NEG) Urine Benzodiazepines Screen NEG (NEG) Urine Cocaine Metabolite NEG (NEG) Urine Marijuana (THC) NEG (NEG) Anion Gap 5.0 mmol/L (3-11) Est Creatinine Clear Calc Drug Dose 108.0 ml/min Estimated GFR () 100.3 Estimated GFR (Non- 86.5 BUN/Creatinine Ratio 18.0 (10-20) Calcium Level 9.0 mg/dl (8.5-10.1) Total Creatine Kinase 156 U/L (39-308) Troponin I 0.072 ng/ml (0-0.045) Medications Administered Medications (Trade) Dose Ordered Sig/Abimael Route Start Time Stop Time Status Last Admin Dose Admin Sodium Chloride 1,000 ml @ 999 mls/hr Q1H1M STAT IV 12/29/16 08:18 12/29/16 09:18 DC 12/29/16 08:33 999 MLS/HR Ondansetron HCl (Zofran Inj) 4 mg STK-MED ONCE .ROUTE 12/29/16 14:15 12/29/16 14:16 DC 12/29/16 14:19 4 MG ECG Indication: other (overdose ) Rate (beats per minute): 95 Rhythm: sinus rhythm Findings: no ectopy, other (normal axis) ED Course ED COURSE: Vital signs were reviewed and showed situational hypertension. The patients medical record was reviewed The above diagnostic studies were performed and reviewed. ED treatments and interventions as stated above. 0807: The patient was evaluated in room A11B. A complete history and physical examination was performed. 0818: Ordered Sodium Chloride 1,000 ml @ 999 mls/hr IV. 1033: The patient is still groggy and falls asleep quickly. 1044: Upon reevaluation, the patient is resting. I discussed the findings and the treatment plan with the patient. He expresses agreement and understanding. I spoke with Dr. Gordon. Je will be evaluated for further management. Medical Decision Differential diagnosis: Etiologies such as toxicologic, infection, hypoglycemia, electrolyte abnormalities, cardiac sources, intracerebral event, neurologic, as well as others were entertained. Blood Pressure Screening: The patient was found to have a slightly elevated blood pressure due to circumstances. I do not believe that the patient requires hypertension monitoring. Medication Reconciliation: I attest that I have personally reviewed the patient' s current medication list. Patient is a 21-year-old male who presents the ER following turning blue at home and being found by family at 6:30 AM. He was last seen normal at 6:20 AM. He was brought in by EMS. Per family he admits to taking multiple absence of Percocet. He also admits to drinking alcohol. He denies any other medication abuse. This has happened to him once before in the past. He denies any homicidal or suicidal ideations. Labs were obtained and remarkable for an elevated troponin. Following this I discussed case with internal medicine. They recommended repeat troponin and possible discharged following evaluation by psychiatry. Full evaluation was performed by psychiatry and troponin increased slightly. Following this internal medicine recommended discharging to home. I went into discussed with mother patient was still nauseous and having vomiting. Mom was uncomfortable taking him home. She requests to discuss the case with internal medicine following which the patient was admitted. Consults Time Called: 1000 Consulting Physician: Dr. Gordon Returned Call: [phone]: Upon reevaluation, the patient is resting. I discussed the findings and the treatment plan with the patient. He expresses agreement and understanding. I spoke with Dr. Gordon. Je will be evaluated for further management. Impression Primary Impression: Opiate abuse, episodic Additional Impressions: Elevated troponin Dehydration Scribe Attestation The scribe's documentation has been prepared under my direction and personally reviewed by me in its entirety. I confirm that the note above accurately reflects all work, treatment, procedures, and medical decision making performed by me. Departure Information Dispostion Being Evaluated By Hospitalist Referrals No Doctor, Assigned (PCP) Patient Instructions [facility] Problem Qualifiers
[2016-12-29] MEDS ORDERED: IV FLUIDS COMPLETED PRN (15:30)
[2016-12-29 15:50] VITALS: BP 116/73; PULSE 66; TEMP 36.7; O2SAT 96
[2016-12-29] MEDS: SODIUM CHLORIDE 0.9% 1000ML 1,000 ML IV SCH ×2 (16:13→21:24)
[2016-12-29 17:14] VITALS: BP 116/73; PULSE 66; TEMP 36.7; O2SAT 96; Ht 175.3 cm; Wt 91.2 kg
[2016-12-29 19:34] VITALS: BP 130/73; PULSE 75; TEMP 36.8; O2SAT 91
[2016-12-29 20:50] LABS: BUN/CREATININE RATIO 14.6 (10-20); CREATININE 1.3 mg/dl (0.60-1.40); MAGNESIUM 2.1 mg/dl (1.8-2.4)
[2016-12-29 20:51] LABS: POTASSIUM 4.8 mmol/L (3.5-5.1)
[2016-12-29] MEDS ORDERED: IBUPROFEN 600 MG TAB PO STA (21:08)
[2016-12-29 23:15] VITALS: BP 96/55; PULSE 70; TEMP 37; O2SAT 96
[2016-12-30 04:10] VITALS: BP 102/61; PULSE 60; TEMP 36.5; O2SAT 97
[2016-12-30 07:45] VITALS: BP 117/70; PULSE 62; TEMP 36.6; O2SAT 96
--- NOTE | 2016-12-30 10:24 | Discharge Instructions ---
Discharge Instructions Date of Service Dec 30, 2016. Admission Reason for Admission: Opiate Abuse, Episodic Discharge Discharge Diagnosis / Problem: Opiate Overdose, abuse Discharge Goals Goal(s): Decrease discomfort, Improve function, Increase independence, Improve disease control Activity Recommendations Activity Limitations: per Instructions/Follow-up section Lifting Limitations: gradually increase as tolerated Exercise/Sports Limitations: rest today, gradually increase as tolerated May Resume Sexual Activity: when tolerated Shower/Bathe: no limitations Driving or Machine Use: no limitations . Instructions / Follow-Up Instructions / Follow-Up You were admitted to [facility] with opiate overdose via inhalation and diagnosed with the same. During your stay here you were treated with intravenous Narcan, supportive care , and intravenous fluids. - Discussion was held regarding cessation of opiate use, alcohol use, and seeking counseling services. A list was provided for local counseling and outpatient rehab centers. You should call to make your own outpatient appointment with a counselor of your choice. Psychiatry evaluated you during your admission and you did not meet inpatient criteria. Continue taking all other medications as prescribed. Follow up: Follow up with your Primary Care Provider within 1 week. Current Hospital Diet Patient's current hospital diet: Regular Diet Discharge Diet Recommended Diet: Regular Diet Pending Studies Studies pending at discharge: no Laboratory Results Hemoglobin A1c Test 10/26/16 13:59 Range/Units Estimated Average Glucose 100 mg/dl Hemoglobin A1c 5.1 4.5-5.6 % Medical Emergencies . Who to Call and When: Medical Emergencies: If at any time you feel your situation is an emergency, please call 911 immediately. . Non-Emergent Contact Non-Emergency issues call your: Primary Care Provider Call Non-Emergent contact if: you have a fever, temperature is above 100.5, you have any medication questions you feel the urge to use drugs, you feel lightheaded or dizzy, or if you have other concerns regarding your health. . Past History Medical & Surgical History: (1) Opiate abuse, episodic (2) Opioid overdose . "Provider Documentation" section prepared by Martha Zazueta. . VTE Core Measure Inpt VTE Proph given/why not?: Juan Horne, SCD's
[2016-12-30 10:29] VITALS: BP 117/70; PULSE 62; TEMP 36.6; O2SAT 96
--- NOTE | 2016-12-30 10:47 | Discharge Summary ---
Discharge Summary Date of Service Dec 30, 2016. (Gogo Zazueta PA-C) Discharge Summary Admission Date: Dec 29, 2016 at 14:07 Discharge Date: Dec 30, 2016 Discharge Disposition: Home with services Principal Diagnosis: Opiate overdose Procedures: HEAD CT NONCONTRAST CT DOSE: 638.56 mGycm HISTORY: OVERDOSE TECHNIQUE: Multiaxial CT images of the head were performed without the use of intravenous contrast. Automated exposure control was utilized for this study. A dose lowering technique was utilized adhering to the principles of ALARA. Comparison: Head CT 06/13/2011. Findings: The paranasal sinuses and mastoid air cells are clear. The calvarium and skull base are intact. The ventricles and sulci are within normal limits. There is no mass, hematoma, midline shift, or acute infarct. Old nasal bone fractures. Impression: No acute intracranial abnormality. Electronically signed by: Jad Garza M.D. 12/29/2016 8:51 AM CHEST ONE VIEW PORTABLE CLINICAL HISTORY: Overdose COMPARISON STUDY: 10/26/2016 FINDINGS: The heart is borderline enlarged. There is a minimal right apical airspace opacity versus summation with the right first rib. The lungs are otherwise clear. There are no pleural effusions.[ IMPRESSION: Minimal right apical airspace opacity versus right first rib summation. The lungs are otherwise clear. Electronically signed by: Javier Cohen M.D. 12/29/2016 8:55 AM Dictated Date/Time: 12/29/2016 8:54 AM The status of this report is Signed. (Gogo Zazueta PA-C) Medication Reconciliation Continued Medications: Methylphenidate Hcl (Concerta) 54 Mg Tab 54 MG PO DAILY MOTHER STATES HE ONLY TAKES THIS DURING SCHOOL. Discharge Exam The patient was seen and examined this morning. Pts mother is present at bedside. Discussion was held with the patient regarding his opiate use habits. He reports using inhaled crushed pills twice monthly, reports it is with friends and by himself in his bedroom, and that he frequently thinks about snorting when he is board. He has also used alcohol for several years, on average weekly when he's at college, when at home its not as often. When he drinks, he consume 5-10 shots within a short period of time, and gets to the point of being drunk, but denies passing out. He typically feels ok the day after and denies severe hangover symptoms. 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 He completed his freshman year in [place], where he was actively snorting meds and drinking alcohol regularly. He from the area and going to attend [employer] this fall to continue his degree. Last year had a 3.0 GPA but says this is much lower than his normal. The patient uses concerta for ADHD while at school, but not regularly. The patient has never sought outpatient therapy or counseling services, and seems to deny any need for this during my interview. He states " I have this under control". His mom is in agreement with information provided. And state the alcohol and medications are locked in her house in a safe which the patient does not have access to. Review of Systems: Constitutional: No fever, No chills, No sweats ENT: No sore throat, No trouble swallowing Respiratory: No cough, No shortness of breath Cardiovascular: No chest pain, No palpitations Abdomen: No pain, No nausea, No vomiting, No diarrhea, No constipation Musculoskeletal: No joint pain, No swelling Genitourinary - Male: No hematuria, No dysuria, No urinary retention Neurologic: No paralysis, No numbness/tingling Psychiatric: + substance abuse, + problem reported (ADHD on concerta during school), No depression symptoms, No anhedonism, No anxiety, No insomnia Integumentary: No rash, No itch Physical Exam: General Appearance: WD/WN, no apparent distress, + pertinent finding ( overweight) Eyes: PERRL, EOMI ENT: hearing grossly normal, pharynx normal Neck: supple, no JVD Respiratory/Chest: chest non-tender, lungs clear, no respiratory distress, no accessory muscle use Cardiovascular: regular rate, rhythm, no murmur Abdomen / GI: normal bowel sounds, non tender, soft Extremities: normal inspection, normal capillary refill, no pedal edema Neurologic/Psychiatric: alert, normal mood/affect, oriented x 3 Skin: normal color, warm/dry (Gogo Zzaueta PA-C) Hospital Course H&P per Matty Gordon 21 y/o M Hx ADHD, recreational opiate use. Pt crushed up opiates this AM - approximately 100mg - and proceeded to snort the whole amount. He was discovered at home by his father who reported that the pt was barely breathing and appeared cyanotic in color. EMS was summoned and he received one dose of Narcan. He also reports that he hit the back of his hid in the tub earlier in the day but does not report associated LOC. He denies that he was intent to harm himself, however, this is the second time he has overdosed requiring medical attention in the past few months. He was somnolent on arrival to the ER although he is awake and alert at the time of evaluation. He denies CP, SOB, N/ V and states that he feels well presently. Initial labs show a borderline troponin and a mild creatinine elevation. General Appearance: WD/WN, no apparent distress Head: normocephalic Eyes: normal inspection, EOMI ENT: normal ENT inspection, pharynx normal Neck: supple, no JVD Respiratory/Chest: chest non-tender, lungs clear, normal breath sounds Cardiovascular: regular rate, rhythm, no edema, no gallop Abdomen/GI: normal bowel sounds, non tender, soft Back: normal inspection, no CVA tenderness, no muscle spasm Extremities/Musculoskelatal: normal inspection, no calf tenderness, normal capillary refill Neurologic/Psych: medical tech II-XII nml as tested, no motor/sensory deficits, alert Skin: + pertinent finding (Rash - petechial - limited area of L calf) Hospital Course 1) Opiate OD - from a medical standpoint, the Narcan dose has worn off, he is not exhibiting toxicity and therefore any respiratory depression is unlikely to recur. As this is his second OD, he will be evaluated by mental health prior to consideration for DC and should be referred for outpt counseling. - Psychiatry evaluated the patient and reported he did not meet inpatient criteria - Discussion was held regarding the need for outpatient counseling, and the patient was agreeable to counseling, but not agreeable to an outpatient rehab program. - Pt was encouraged to NOT use drugs or alcohol. - He does not follow with mental health. 2) Elevation in creatinine and borderline trop may represent mild hypoxic injury. He is receiving aggressive IVF and labs will be rechecked. EKG shows no abnormalities. - Cr. improved and trop is negative on recheck. 3) ADHD - Pt noted to take concerta in the education setting/ while in college, and does not take it regularly. I agree that this patient would be an inappropriate candidate for a stimulant. - Will ask his PCP/ prescribing physician to stop this medication. Total Time Spent: Greater than 30 minutes This includes examination of the patient, discharge planning, medication reconciliation, and communication with other providers. (Gogo Zazueta, YESSI) I agree with PA assessment and plan and have personally seen and examined pt myself Resting comfortably in bed VSS Labs reviewed Pt alert and oriented x 3 States does not want to seek further treatment for substance abuse at this time but willing to have a few numbers to call fo counseling as an outpatient Pt denies any homicidal or suicidal ideations Stable for discharge home (Jaret Worthy, D.O.) Discharge Instructions Please refer to the electronic Patient Visit Report (Discharge Instructions) for additional information. (Gogo Zazueta, YESSI) Follow-Up Follow up with your Primary Care Provider within 1 week. (Gogo Zazueta, YESSI)
[2016-12-31 14:41] LABS: COD UR NEGATIVE NG/ML (CUTOFF=50); HYDROCOD UR NEGATIVE NG/ML (CUTOFF=50); HYDROMOR UR 125 NG/ML (CUTOFF=50); MORPHINE UR 1690 NG/ML (CUTOFF=50); NORHYDROCODONE CONF UR 54 NG/ML (CUTOFF=50); OXYMORPH UR NEGATIVE NG/ML (CUTOFF=50)
== END 2016-12-30 11:00 | disposition home or self-care (01) ==
LOC: EDBD 07:57 → C.EDA 07:58 → C.2T 14:07 → ENRESERV 15:00
PROVIDERS: ADMIT Internal Medicine; ATTEND Hospitalist
DX: T40.2X2A Poisoning by other opioids, intentional self-harm, initial encounter (principal); E86.0 Dehydration; F11.129 Opioid abuse with intoxication, unspecified; Y92.009 Unspecified place in unspecified non-institutional (private) residence as the place of occurrence of the external cause; F90.9 Attention-deficit hyperactivity disorder, unspecified type; F17.210 Nicotine dependence, cigarettes, uncomplicated; Z79.899 Other long term (current) drug therapy